=== PATIENT | male | born 1975 | race Caucasian/White ===

== ENCOUNTER 2017-08-26 01:33 | Emergency (ER) | payer OTHER ==
--- NOTE | 2017-08-26 02:26 | EDPHY ---
H & P Stated Complaint: fall, l thumb pain Time Seen by Provider: 08/26/17 02:21 HPI/ROS: HPI The patient presents with left thumb pain which occurred at about 1:00 a.m. This morning. He startled from sleep and hit his left thumb forcefully on his bed. He has had pain and swelling of the thumb ever since. He denies any numbness or tingling. The pain is throbbing, constant, not improved with ibuprofen 400 mg she took prior to arrival.. REVIEW OF SYSTEMS Constitutional: No fever, no chills. Skin: No rashes. Neurological: No headache. PMHx: Healthy Soc Hx: Housed PHYSICAL General Appearance: Alert, no distress Eyes: Pupils equal and round ENT, Mouth: Mucous membranes moist Respiratory: Breathing comfortably Neurological: A&O, moves all extremities Skin: Warm and dry, no rashes Extremities: Left thenar eminence is diffusely edematous and tender to palpation, no tenderness at the anatomic snuffbox, full range of motion of the thumb, brisk cap refill of his left thumb with sensation intact to light touch Psychiatric: Patient is oriented X 3, there is no agitation Source: Patient Exam Limitations: No limitations - Personal History Current Tetanus Diphtheria and Acellular Pertussis (TDAP): Unsure - Medical/Surgical History Other PMH: appy - Social History Smoking Status: Never smoked Constitutional: Initial Vital Signs Temperature (C) 36.9 C 08/26/17 01:37 Heart Rate 65 08/26/17 01:37 Respiratory Rate 16 08/26/17 01:37 Blood Pressure 130/85 H 08/26/17 01:37 O2 Sat (%) 97 08/26/17 01:37 O2 Delivery Mode Room Air Allergies/Adverse Reactions: erythromycin base Allergy (Verified 08/26/17 01:36) Home Medications: Medication Instructions Recorded NK [No Known Home Meds] 08/26/17 Medical Decision Making - Diagnostics Imaging Results: X-rays thumb three view shows no fracture, no dislocation, interpreted by me, radiology interpretation is pending. Procedures: SPLINT Procedure: Splint placement. A Velcro thumb spica splint was applied to the hand by the tech. After application of the splint I returned and re-examined the patient. The splint was adequately immobilizing the joint and distal to the splint the patient's circulation and sensation was intact. Differential Diagnosis: 42-year-old male presents with injury to left thumb while sleeping, now with tenderness and edema to the left thenar eminence. Differential diagnosis includes hand sprain, hand fracture, hand dislocation. In the emergency department, ice pack was applied. X-rays were performed and showed no obvious fracture. He was placed in a thumb spica splint for comfort. I have given him follow-up information for orthopedics he has any ongoing pain or difficulty moving his thumb. He is in agreement with this plan. I suspect he has a thumb sprain. Departure - Departure Disposition: Home, Routine, Self-Care Clinical Impression: Left thumb sprain Qualifiers: Encounter type: initial encounter Sprain of finger site: unspecified site Qualified Code(s): S63.602A - Unspecified sprain of left thumb, initial encounter Condition: Good Instructions: Finger Sprain (ED) Additional Instructions: I recommend you take ibuprofen 400 mg every 6 hr as needed for pain. You can use ice packs for 20 min at a time several times during the day. Below is the information for the hand specialist. If you have pain that last for more than a week or any difficulty moving her thumb, you should follow up with him. Referrals: Layton Hsu MD [Medical Doctor] - As per Instructions
[2017-08-26 03:02] VITALS: BP 114/81
== END 2017-08-26 03:14 | disposition home or self-care (01) ==
DX: S63.602A Unspecified sprain of left thumb, initial encounter (principal); W22.8XXA Striking against or struck by other objects, initial encounter; Y99.8 Other external cause status
CPT/HCPCS: L3807